=== PATIENT | female | born 1995 ===

== ENCOUNTER 2021-10-26 07:00 | Inpatient (IN) ==
[2021-10-26] MEDS ORDERED: *HR* Nalbuphine 10 MG/ML AMPUL IV PRN (08:18)
[2021-10-26] MEDS ORDERED: Lidocaine 1% 20 ML MDV INFILT PRN (08:18)
[2021-10-26] MEDS ORDERED: Metoclopramide 10 MG/2 ML VIAL IVP PRN (08:18)
[2021-10-26] MEDS ORDERED: Azithromycin 500 MG in 0.9 % Sodium Chloride 250 ML IVPB PRN (08:18)
[2021-10-26] MEDS ORDERED: Ondansetron 4 MG/2 ML VIAL IVP PRN (08:18)
[2021-10-26] MEDS ORDERED: Famotidine 20 MG/2 ML VIAL IVP PRN (08:18)
[2021-10-26] MEDS ORDERED: Ringers Solution, Lactated 1,000 ML IVC ONE ×2 (08:20→23:27)
[2021-10-26] MEDS ORDERED: CeFAZolin 2,000 MG/120 ML BAG IVPB ONE (08:20)
[2021-10-26] MEDS ORDERED: OXYTOCIN/RINGERS LACTATE 10 UNIT/166.6 ML BAG IVC ONE (08:20)
[2021-10-26 09:18] LABS: Basophils % 0.2 %; Eosinophils # 0.1 K/mcL (0.0-0.6); Eosinophils % 1.1 %; Hematocrit 38.6 % (35.3-44.9); Hemoglobin 12.8 g/dL (11.5-15.4); Immature Granulocytes % 0.7 % (0-4); Lymphocytes # 1.7 K/mcL (0.6-4.6); Mean Corpuscular HGB Conc 33.2 g/dL (31.6-35.5); Mean Corpuscular Hemoglobin 28.8 pg (28.0-33.3); Mean Corpuscular Volume 86.9 fL (83.0-100.0); Mean Platelet Volume 10.3 fL (9.4-12.4); Monocytes # 0.7 K/mcL (0.0-1.3); Monocytes % 8.6 %; Neutrophils # 5.5 K/mcL (1.6-8.9); Platelet Count 202 K/mcL (140-400); Red Blood Count 4.44 M/mcL (3.82-4.97); Red Cell Distribution Width 14.4 % (11.5-14.5); Segmented Neutrophils % 68.4 %
[2021-10-26 09:20] LABS: Amphetamine Screen,Urine Negative ng/mL (Cutoff=1000); Barbiturate Screen,Urine Negative ng/mL (Cutoff=200); Benzodiazepines Screen,Urine Negative ng/mL (Cutoff=200); Cannabinoid Screen,Urine Negative ng/mL (Cutoff = 50); Cocaine Screen,Urine Negative ng/mL (Cutoff= 300); Opiate Screen,Urine Negative ng/mL (Cutoff=300); Phencyclidine Screen,Urine Negative ng/mL (Cutoff=25)
[2021-10-26] MEDS ORDERED: miSOPROStoL 25 MCG TABLET PO PRN (09:42)
[2021-10-26] MEDS ORDERED: EPHEDrine 50 MG/ML VIAL IVP PRN (11:20)
[2021-10-26] MEDS ORDERED: Oxytocin 30 UNIT/503 ML BAG IVC SCH (12:45)
[2021-10-26] MEDS: Ringers Solution, Lactated 1,000 ML IVC SCH ×3 (14:15→19:08)
[2021-10-26] MEDS: Oxytocin 30 UNIT/503 ML BAG IVC SCH (14:21)
[2021-10-26] MEDS: Epidural Premix (fent/bupiv) 110 ML EP SCH ×2 (14:21→19:00)
[2021-10-27] MEDS ORDERED: CeFAZolin 2,000 MG/120 ML BAG IVPB SCH (04:00)
[2021-10-27] MEDS ORDERED: Ringers Solution, Lactated 1,000 ML ONE ×2 (04:26→14:09)
[2021-10-27] MEDS ORDERED: Lidocaine/EPI 1:200k 2% PF 20 ML VIAL ONE (04:26)
[2021-10-27] MEDS ORDERED: Acetaminophen IV 1,000 MG/100 ML BAG IVPB ONE (04:26)
[2021-10-27] MEDS ORDERED: Sodium Bicarbonate 50 MEQ/50 ML VIAL ONE (04:26)
[2021-10-27] MEDS ORDERED: *HR* FentaNYL (PF) 100 MCG/2 ML VIAL ONE (04:27)
[2021-10-27] MEDS ORDERED: Ondansetron 4 MG/2 ML VIAL ONE (04:30)
[2021-10-27] MEDS ORDERED: Ketorolac 30 MG/ML VIAL ONE (04:31)
[2021-10-27] MEDS ORDERED: *HR* Oxytocin 10 UNIT/ML VIAL ONE (04:32)
[2021-10-27] MEDS ORDERED: *HR* Midazolam HCl 2 MG/2 ML VIAL ONE (04:53)
[2021-10-27] MEDS ORDERED: *HR* Morphine Sulfate/PF 10 MG/10 ML AMPUL ONE (05:28)
[2021-10-27] MEDS ORDERED: Promethazine 6.25 MG in Water for inj. (sterile) 20 ML IVPB PRN (05:51)
[2021-10-27] MEDS ORDERED: *HR* Meperidine 25 MG/ML SYRINGE IVP PRN (05:51)
[2021-10-27] MEDS ORDERED: Acetaminophen IV 1,000 MG/100 ML BAG IVPB PRN (05:51)
[2021-10-27] MEDS ORDERED: *HR* HYDROmorphone PF 0.5 MG/0.5 ML SYRINGE IVP PRN (05:51)
[2021-10-27] MEDS ORDERED: Rho Immune Globulin 1,500 UNIT SYRINGE IM ONE (06:28)
[2021-10-27] MEDS ORDERED: *HR* OxyCODONE Immed Rel 5 MG TABLET PO PRN ×2 (06:28→10:36)
[2021-10-27] MEDS ORDERED: Simethicone 80 MG TAB.CHEW PO PRN ×2 (06:28→13:24)
[2021-10-27] MEDS ORDERED: Ondansetron 4 MG/2 ML VIAL IVP PRN ×3 (06:28→13:24)
[2021-10-27] MEDS ORDERED: Metoclopramide 10 MG/2 ML VIAL IVP PRN ×2 (06:28→13:24)
[2021-10-27] MEDS ORDERED: Acetaminophen 325 MG TABLET PO SCH (06:30)
[2021-10-27] MEDS ORDERED: Ringers Solution, Lactated 1,000 ML IVC SCH (06:30)
[2021-10-27] MEDS ORDERED: SODIUM CHLORIDE 0.9% IVPB ONE (07:00)
[2021-10-27] MEDS ORDERED: GENTAMICIN IVPB ONE (07:00)
[2021-10-27] MEDS ORDERED: Ampicillin 2,000 MG in 0.9 % Sodium Chloride Mini Bag 100 ML IVPB SCH (07:00)
[2021-10-27] MEDS ORDERED: Clindamycin 900 MG/50 ML 900 MG/50 ML IV.SOLN IVPB SCH (08:00)
[2021-10-27] MEDS ORDERED: Ibuprofen 600 MG TABLET PO SCH (09:28)
[2021-10-27] MEDS: Levothyroxine 25 MCG TABLET PO SCH (10:08)
[2021-10-27] MEDS: Magnesium Oxide 400 MG TABLET PO SCH (10:08)
[2021-10-27] MEDS ORDERED: Measles/Mumps/Rubella Vacc 0.5 ML VIAL SQ ONE (13:24)
[2021-10-27] MEDS: Acetaminophen 325 MG TABLET PO SCH ×2 (14:17→19:36)
[2021-10-27] MEDS: Piperacillin/Tazobactam 3.375 GM in 0.9 % Sodium Chloride Mini Bag 100 ML IVPB SCH ×2 (16:23→23:29)
[2021-10-27] MEDS: Ibuprofen 600 MG TABLET PO SCH ×2 (16:23→23:28)
[2021-10-27] MEDS ORDERED: *HR* Enoxaparin 60 MG/0.6 ML SYRINGE SQ SCH (18:00)
[2021-10-27] MEDS: *HR* Enoxaparin 60 MG/0.6 ML SYRINGE SQ SCH (19:37)
[2021-10-27] MEDS ORDERED: Sennosides 8.6 MG TABLET PO SCH (21:00)
[2021-10-28] MEDS: Acetaminophen 325 MG TABLET PO SCH ×3 (04:11→14:40)
[2021-10-28 05:46] LABS: Basophils % 0.2 %; Eosinophils # 0.1 K/mcL (0.0-0.6); Eosinophils % 0.8 %; Hematocrit 29.7 % (35.3-44.9); Immature Granulocytes % 0.8 % (0-4); Lymphocytes # 1.7 K/mcL (0.6-4.6); Lymphocytes % 14.3 %; Mean Corpuscular HGB Conc 32.7 g/dL (31.6-35.5); Mean Corpuscular Volume 88.7 fL (83.0-100.0); Mean Platelet Volume 9.8 fL (9.4-12.4); Monocytes # 0.8 K/mcL (0.0-1.3); Monocytes % 6.7 %; Neutrophils # 9.2 K/mcL (1.6-8.9); Platelet Count 133 K/mcL (140-400); Red Blood Count 3.35 M/mcL (3.82-4.97); Red Cell Distribution Width 14.8 % (11.5-14.5); Segmented Neutrophils % 77.2 %
[2021-10-28 05:48] LABS: Hemoglobin 9.7 g/dL (11.5-15.4)
[2021-10-28] MEDS ORDERED: Levothyroxine 25 MCG TABLET PO SCH (06:30)
[2021-10-28] MEDS: Levothyroxine 25 MCG TABLET PO SCH (06:56)
[2021-10-28] MEDS: Magnesium Oxide 400 MG TABLET PO SCH (09:44)
[2021-10-28] MEDS: *HR* Enoxaparin 60 MG/0.6 ML SYRINGE SQ SCH ×2 (09:44→20:06)
[2021-10-28] MEDS: Prenatal Vit/FA 1 EACH TABLET PO SCH ×2 (09:44→10:46)
[2021-10-28] MEDS: Ibuprofen 600 MG TABLET PO SCH ×3 (09:44→17:30)
[2021-10-28] MEDS: Loratadine 10 MG TABLET PO SCH (09:44)
[2021-10-28] MEDS: Piperacillin/Tazobactam 3.375 GM in 0.9 % Sodium Chloride Mini Bag 100 ML IVPB SCH (09:45)
[2021-10-29] MEDS: Ibuprofen 600 MG TABLET PO SCH ×3 (05:17→13:03)
[2021-10-29] MEDS: Acetaminophen 325 MG TABLET PO SCH ×4 (05:17→14:27)
[2021-10-29] MEDS: Levothyroxine 25 MCG TABLET PO SCH (06:45)
[2021-10-29 07:52] VITALS: O2SAT 98
[2021-10-29] MEDS: Prenatal Vit/FA 1 EACH TABLET PO SCH ×2 (08:00→08:03)
[2021-10-29] MEDS: Magnesium Oxide 400 MG TABLET PO SCH (08:01)
[2021-10-29] MEDS: *HR* Enoxaparin 60 MG/0.6 ML SYRINGE SQ SCH (08:01)
[2021-10-29] MEDS: Loratadine 10 MG TABLET PO SCH (08:01)
[2021-10-29 09:10] VITALS: BP 132/92; PULSE 100; TEMP 97.9
[2021-10-29 11:18] LABS: Basophils % 0.4 %; Eosinophils # 0.3 K/mcL (0.0-0.6); Eosinophils % 2.6 %; Hemoglobin 9.9 g/dL (11.5-15.4); Lymphocytes # 1.5 K/mcL (0.6-4.6); Lymphocytes % 15.3 %; Mean Corpuscular Hemoglobin 29.4 pg (28.0-33.3); Mean Platelet Volume 9.7 fL (9.4-12.4); Monocytes # 0.8 K/mcL (0.0-1.3); Monocytes % 7.8 %; Neutrophils # 7.3 K/mcL (1.6-8.9); Nucleated Red Blood Cells 0.2 /100 WBC (0); Platelet Count 174 K/mcL (140-400); Red Blood Count 3.37 M/mcL (3.82-4.97); Red Cell Distribution Width 14.9 % (11.5-14.5); Segmented Neutrophils % 72.9 %
[2021-10-29 12:09] LABS: Alanine Aminotransferase 16 Units/L (7-52); Aspartate Amino Transferase 25 Units/L (13-39); BUN/Creatinine Ratio 18 (6-26); Blood Urea Nitrogen 10 mg/dL (6-20); Lactate Dehydrogenase 193 Units/L (140-271); Uric Acid 4.2 mg/dL (2.3-7.6)
== END 2021-10-29 14:00 | disposition home or self-care (01) | DRG 788 ==
LOC: 1NENULAB 07:26 → 1NENUOBS 10-27 10:31
PROVIDERS: ADMIT Obstetrics & Gynecology; ATTEND Obstetrics & Gynecology